=== PATIENT | female | born 1945 | race Caucasian/White ===

== ENCOUNTER 2018-04-18 05:28 | Observation (INO) | payer MEDICARE, BC ==
--- NOTE | 2018-04-16 15:39 | Diagnostic Imaging Report ---
PROCEDURE: Frontal and lateral views of the chest. COMPARISON: None. INDICATIONS: PREOP SURGERY RIGHT LEG March FINDINGS: Lines/tubes: Clips project over the left axillary soft tissues. Lungs: The lungs are well inflated and clear. There is no evidence of pneumonia or pulmonary edema. Pleura: There is no pleural effusion or pneumothorax. Heart and mediastinum: The cardiomediastinal silhouette is unremarkable. Atherosclerotic calcification of the aortic arch. Bones: No acute bony abnormality. IMPRESSION: No evidence of pneumonia or pulmonary edema. Dictated by: PUSHPA CRUZ M.D. on 04/16/2018 at 15:43 Electronically approved by: PUSHPA CRUZ M.D. on 04/16/2018 at 15:43
[2018-04-16 15:51] LABS: BASOPHILS % 0.4 % (0.0-1.0); EOSINOPHILS % 0.1 % (0.0-6.0); HEMATOCRIT 39.6 % (34.2-44.1); HEMOGLOBIN 13.1 g/dL (12.0-16.0); LYMPHOCYTES # (AUTO) 1.6 (1.0-3.2); LYMPHOCYTES % 14.6 % (18.0-39.1); MEAN CORPUSCULAR HGB CONC 33.1 g/dL (31-35); MEAN CORPUSCULAR VOLUME 93.8 fL (81-99); MONOCYTES # (AUTO) 0.7 (0.2-0.8); MONOCYTES % 6.8 % (4.4-11.3); NEUTROPHILS # (AUTO) 8.3 (2.1-6.9); PLATELET COUNT 340 x10e3/uL (140-360); RED BLOOD COUNT 4.22 x10e6/uL (3.6-5.1); RED CELL DISTRIBUTION WIDTH 16.1 % (11.7-14.4)
[2018-04-16 15:58] LABS: INR 1.02; PARTIAL THROMBOPLASTIN TIME 25.1 seconds (23.8-35.5); PROTHROMBIN TIME 12.6 seconds (11.9-14.5)
[2018-04-17 03:17] LABS: ANION GAP 17.5 mmol/L (8-16); CALCIUM 10.4 mg/dL (8.4-10.2); CREATININE, SERUM 1.24 mg/dL (0.57-1.11); POTASSIUM 4.5 mmol/L (3.5-5.1)
[2018-04-18] VITALS (7 sets, daily range): BP systolic 123–159; BP diastolic 59–79
[~2018-04-18] VITALS: Ht 157.5 cm; Wt 60.3 kg
[~2018-04-18 05:28] MED LIST: ALLEGRA ALLERG180 MG; ALLOPURINOL100 MG PO; ARTIFICIAL TEAR15 ML OP; ASPIRIN81 MG PO; ATENOLOL50 MG PO; CENTRUM SILVER1 EAC3 PO; COQ-10100 MG PO; DEPAKOTE250 MG PO; ELIQUIS PO; FENOFIBRATE145 MG PO; FLONASE; GABAPENTIN100 MG PO; GLUCOSAMINE &1 EACH PO; KLONOPIN0.5 MG PO; KRILL OIL500 MG PO; NEORAL25 MG PO; PANTOPRAZOLE SO40 MG PO; POTASSIUM99 M1; PRAVASTATIN SOD20 MG PO; PREDNISONE5 MG PO; PROCTOCORT PO; QUESTRAN PACKET4 GM PO; RECLAST IV; RESTASIS1 EACH; SEROQUEL25 MG PO; SYNTHROID75 MCG PO; TAMSULOSIN HCL0.4 MG PO; TORSEMIDE5 MG PO; TYLENOL; ULTRAM50 MG PO; VITAMIN D1000 UNI1 PO
[2018-04-18] MEDS ORDERED: CEFAZOLIN SOD 1 GM VIAL ONE (05:48)
[2018-04-18] MEDS ORDERED: THROMBIN FOR SOLN 5,000 UNIT VIAL ONE (06:47)
[2018-04-18] MEDS ORDERED: BUPIVACAINE 0.5%/EPI 30 ML SDV INJ ONE (06:47)
[2018-04-18] MEDS ORDERED: GELATIN SPONGE SZ 100 ONE (06:48)
[2018-04-18] MEDS ORDERED: BACITRACIN 50,000 UNIT VIAL ONE (06:48)
[2018-04-18] MEDS ORDERED: ACETAMINOPHEN 1000 MG/100 ML 100 ML IV ONE (06:56)
[2018-04-18] MEDS ORDERED: LIDOCAINE HCL (LTA) 4 ML SOLN ONE (06:56)
[2018-04-18] MEDS ORDERED: SCOPOLAMINE 1.5 MG PATCH ONE (07:24)
[2018-04-18] MEDS ORDERED: FAMOTIDINE 20 MG/2 ML VIAL IV ONE (07:25)
[2018-04-18] MEDS: LACTATED RINGER'S 1,000 ML IV SCH ×2 (09:13→17:01)
[2018-04-18] MEDS ORDERED: ZOLPIDEM TARTRATE 5 MG TAB PO PRN (09:15)
[2018-04-18] MEDS ORDERED: PROMETHAZINE HCL (IM) 25 MG/ML VIAL IM PRN (09:15)
[2018-04-18] MEDS ORDERED: MORPHINE SULFATE 5 MG/ML VIAL IM PRN (09:15)
[2018-04-18] MEDS: ARTIFICIAL TEARS (OPTH) 15 ML BTL OP SCH ×4 (09:15→21:15)
[2018-04-18] MEDS ORDERED: ONDANSETRON HCL INJ 2 MG/ML VIAL IV PRN (09:15)
[2018-04-18] MEDS ORDERED: HYDROMORPHONE 2MG/ML 2 MG/ML ML IV PRN (09:15)
[2018-04-18] MEDS ORDERED: CARISOPRODOL 350 MG TAB PO PRN (09:15)
[2018-04-18] MEDS ORDERED: TRAMADOL HCL 50 MG TAB PO PRN (09:15)
[2018-04-18] MEDS ORDERED: MAGNESIUM/ALUMINUM/SIMETHICONE 30 ML UDC PO PRN (09:15)
[2018-04-18] MEDS ORDERED: ACETAMINOPHEN 325 MG TAB PO PRN (09:15)
[2018-04-18] MEDS ORDERED: FENTANYL CITRATE/PF 100MCG/2 ML INJ ONE ×2 (09:41→19:05)
--- NOTE | 2018-04-18 09:50 | Operative Report ---
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 PROCEDURE: Right L5-S1 laminotomy, medial facetectomy, and microsurgical resection of intraspinal extradural synovial cyst, [id number]. ANESTHESIA: General. INDICATIONS: The patient is a woman who has previously undergone left L5-S1 laminotomy and resection of intraspinal synovial cyst in the past with good results. She now presents with right S1 radiculopathy and is found to have formed a new synovial cyst emerging from the right L5-S1 facet joint and compressing the right S1 nerve root. The patient was taken to the operating room for microsurgical resection of the intraspinal extradural synovial cyst on the right side. PROCEDURE: After induction of general anesthesia, the patient was placed on the operating table in prone position over a Chris frame. The lumbar region was prepped and draped in sterile fashion. A preoperative x-ray was obtained. A small midline incision was created overlying her previous incision scar. The lumbar fascia was opened to the right of midline, and a subperiosteal dissection was carried out to expose the right side of the L5 and S1 laminae and the medial aspect of the facet joint. Another x-ray confirmed correct localization. The operating microscope was brought in. A high-speed drill equipped with a kyle bur was used to drill the inferior aspect of lamina of L5, the medial rim of the L5-S1 hypertrophic facet joint, and the superior rim of the lamina of S1. The ligamentum flavum was carefully resected, and the dural sac and the S1 nerve root were exposed. The synovial cyst came into view, markedly adherent to the dura over the shoulder and axilla of the S1 nerve root. A plane of dissection was developed between the dura and the edge of the synovial cyst with a microhook, and the synovial cyst was carefully elevated and peeled away from the dura and resected in a piecemeal fashion with a micropituitary rongeur until it was completely removed and until the dura and the S1 nerve root were fully exposed and decompressed. Meticulous hemostasis was secured. The retractor was removed. The lumbar fascia was closed with #0 Vicryl sutures. The subcutaneous layer was closed with 2-0 Vicryl sutures. The skin was closed with 3-0 Monocryl sutures in subcuticular fashion. Steri-Strips and dressing were applied. The patient was awakened, extubated and taken to the postanesthesia care unit in stable condition. No intraoperative complications were encountered. Estimated blood loss was 10 mL. Job#: [id number]
[2018-04-18] MEDS ORDERED: PREDNISONE 5 MG TAB PO SCH (11:05)
[2018-04-18] MEDS ORDERED: FENOFIBRATE 145 MG TAB PO SCH (11:06)
[2018-04-18] MEDS ORDERED: ALLOPURINOL 100 MG TAB PO SCH (11:06)
[2018-04-18] MEDS ORDERED: CHOLECALCIFEROL 1,000 UNIT TAB PO SCH (11:07)
[2018-04-18] MEDS ORDERED: CYCLOSPORINE 25 MG CAP PO SCH ×3 (11:09→12:01)
[2018-04-18] MEDS: OXYCODONE/ACETAMINOPHEN 5-325 1 EACH TABLET PO PRN ×2 (11:49→18:04)
[2018-04-18] MEDS: CEFAZOLIN SOD 1 GM/D5W 50ML 50 ML IV SCH ×2 (14:32→21:16)
[2018-04-18] MEDS ORDERED: ROCURONIUM BROMIDE 10 MG/ML 5ML VIAL ONE (15:26)
[2018-04-18] MEDS ORDERED: ONDANSETRON HCL INJ 2 MG/ML VIAL ONE (15:26)
[2018-04-18] MEDS ORDERED: METOCLOPRAMIDE HCL 10 MG/2ML VIAL ONE (15:26)
[2018-04-18] MEDS ORDERED: PROPOFOL IV EMULSION 10 MG/ML 20 ML VIAL ONE (15:26)
[2018-04-18] MEDS ORDERED: LIDOCAINE HCL 2% LOCAL INJ 5 ML SDV VIAL INJ ONE (15:26)
[2018-04-18] MEDS ORDERED: DESFLURANE 240 ML BTL INH ONE (15:26)
[2018-04-18] MEDS ORDERED: DEXAMETHASONE SOD PHOS INJ 4 MG/ML VIAL ONE (15:26)
[2018-04-18] MEDS ORDERED: GABAPENTIN 100 MG CAP PO SCH (17:00)
[2018-04-18] MEDS ORDERED: QUETIAPINE FUMARATE 25 MG TAB PO SCH ×2 (17:00→20:00)
[2018-04-18] MEDS ORDERED: CLONAZEPAM 0.5 MG TAB PO SCH (17:15)
[2018-04-18] MEDS ORDERED: MIDAZOLAM HCL 2 MG/2 ML VIAL ONE (19:05)
[2018-04-18] MEDS ORDERED: TAMSULOSIN HCL 0.4 MG CAP PO SCH (21:00)
[2018-04-18] MEDS ORDERED: SIMVASTATIN 20 MG TAB PO SCH (21:00)
[2018-04-19] VITALS: BP 148/69
[2018-04-19] MEDS: ARTIFICIAL TEARS (OPTH) 15 ML BTL OP SCH ×2 (01:15→05:15)
[2018-04-19] MEDS: LACTATED RINGER'S 1,000 ML IV SCH (01:53)
[2018-04-19 03:44] VITALS: BP 137/60
[2018-04-19] MEDS ORDERED: LEVOTHYROXINE SODIUM 75 MCG TAB PO SCH ×2 (06:00→09:00)
[2018-04-19] MEDS: CEFAZOLIN SOD 1 GM/D5W 50ML 50 ML IV SCH (06:00)
[2018-04-19] MEDS: OXYCODONE/ACETAMINOPHEN 5-325 1 EACH TABLET PO PRN (07:00)
[2018-04-19 07:47] VITALS: BP 142/64
[2018-04-19] MEDS ORDERED: PREDNISONE 5 MG TAB PO SCH (09:00)
[2018-04-19] MEDS ORDERED: ATENOLOL 50 MG TAB PO SCH (09:00)
[2018-04-19] MEDS ORDERED: PANTOPRAZOLE SOD 40 MG TABEC PO SCH (09:00)
[2018-04-19] MEDS ORDERED: ALLOPURINOL 100 MG TAB PO SCH (09:00)
[2018-04-19] MEDS ORDERED: FENOFIBRATE 145 MG TAB PO SCH (09:00)
[2018-04-19] MEDS ORDERED: CYCLOSPORINE 25 MG CAP PO SCH (09:00)
[2018-04-19] MEDS ORDERED: CHOLECALCIFEROL 1,000 UNIT TAB PO SCH (09:00)
[2018-04-19] MEDS ORDERED: PRAVASTATIN 20 MG TAB PO SCH (09:00)
[2018-04-19] MEDS ORDERED: TAMSULOSIN HCL 0.4 MG CAP PO SCH (09:00)
[2018-04-19] MEDS ORDERED: CHOLESTYRAMINE 4 GM PACKET PO SCH ×2 (09:00)
== END 2018-04-19 09:35 | disposition home or self-care (01) ==
LOC: OR 05:28 → PACU V 09:24 → IMCU 10:19
PROVIDERS: ADMIT Neurological Surgery; ATTEND Neurological Surgery
DX: M71.38 Other bursal cyst, other site (principal); M48.07 Spinal stenosis, lumbosacral region; I10 Essential (primary) hypertension; E78.5 Hyperlipidemia, unspecified; E03.9 Hypothyroidism, unspecified; R12 Heartburn; Z94.0 Kidney transplant status; Z85.3 Personal history of malignant neoplasm of breast; M81.0 Age-related osteoporosis without current pathological fracture; M54.17 Radiculopathy, lumbosacral region; F31.9 Bipolar disorder, unspecified; F41.9 Anxiety disorder, unspecified; I48.91 Unspecified atrial fibrillation
CPT/HCPCS: 36415; 63267; 69990; 71046; 72020; 80048; 85025; 85610; 85730; 86850; 86900; 88304; 88311; 93005; G0378 ×2; J0690; J1100; J2001; J2250; J2270; J2405; J2765; J7512 ×2; J7515 ×2